=== PATIENT | male | born 1990 | race Caucasian/White ===

== ENCOUNTER 2017-03-13 15:41 | Inpatient (IN) | payer OTHER ==
[2017-03-13] MEDS ORDERED: CHARCOAL/SORBITOL SOLUTION 25 GM/120 ML TUBE PO ONE (16:13)
--- NOTE | 2017-03-13 16:23 | EDPHY ---
H & P Smoking Status: Never smoked Time Seen by Provider: 03/13/17 15:57 HPI/ROS: CHIEF COMPLAINT: Feeling suicidal, overdose HISTORY OF PRESENT ILLNESS: 26-year-old male presents to the emergency department feeling depressed and suicidal. The patient admits to taking 7 mg of Xanax and 4 5 shots of vodka in an attempt to kill himself approximately 1 hour prior to arrival. Patient denies any other substance abuse. He he denies taking any other pills. He currently has no complaints. He denies chest pain or difficulty breathing. Denies abdominal pain. Denies pain in the lower extremities or his left upper extremity. REVIEW OF SYSTEMS: Constitutional: No fever, no chills. Eyes: No double or blurry vision. ENT: No sore throat. Respiratory: No cough, no shortness of breath. Cardiac: No chest pain. Gastrointestinal: No abdominal pain, vomiting or diarrhea. Genitourinary: No dysuria. Musculoskeletal: No neck or back pain. Skin: No rashes. Neurological: No headache. (Melvi Cornejo) Past Medical/Surgical History: Borderline personality disorder, ADD and is prescribed Adderall, previous suicide attempt (Melvi Cornejo) Social History: Single (Melvi Cornejo) Physical Exam: General Appearance: Alert, no distress. Mentating normally and answering questions appropriately. Heart rate 104, blood pressure 123/83, friend at bedside. Eyes: Pupils equal and round. Extraocular motions are all intact. ENT: Mouth: Mucous membranes moist. Respiratory: No wheezing, rhonchi, or rales, lungs are clear to auscultation. Cardiovascular: Regular rate and rhythm. Tachycardic. Gastrointestinal: Abdomen is soft and nontender, no masses, no rebound or guarding, bowel sounds normal. Neurological: Alert and oriented x 3, cranial nerves II through XII grossly intact Skin: Warm and dry, no rashes. Musculoskeletal: Nontender to palpate along the cervical, thoracic or lumbar spine. Neck is supple. Extremities: Full range of motion and no peripheral edema. Psychiatric: Patient is oriented X 3, there is no agitation. (Melvi Cornejo) Constitutional: Initial Vital Signs Temperature (C) 36.8 C 03/13/17 15:43 Heart Rate 104 H 03/13/17 15:43 Respiratory Rate 18 03/13/17 15:43 Blood Pressure 123/83 H 03/13/17 15:43 O2 Sat (%) 96 03/13/17 15:43 O2 Delivery Mode Room Air Allergies/Adverse Reactions: No Known Allergies Allergy (Unverified 03/13/17 15:47) Home Medications: Medication Instructions Recorded ALPRAZolam [Xanax 1 MG (*)] 1 mg PO BID 03/13/17 Amphet Asp and D/Amphet [Adderall 10 mg PO 03/13/17 10 MG (*)] Medical Decision Making ED Course/Re-evaluation: 26-year-old male presents to the emergency department feeling depressed and suicidal. The patient was given activated charcoal with sorbitol since ingestion was apparently just under 1 hour ago. The patient was placed on a detainer by myself. ETOH breath was 0.39. The patient has been medically cleared and will be evaluated by mental health. (Melvi Cornejo) 6pm-this patient was seen and examined by me. He is alert and speech is normal. He is ready for mental health evaluation once his alcohol level is low enough. 2231: Patient has been evaluated by mental health and placed on M1 Hold. He will be transferred, most likely to . Care of this patient signed out to Dr. Aurelia Beltrán at shift change. (Cathy Hu) I assumed care of this patient from Dr. Hu at 11:00 p.m., shift change. At 20 minutes past midnight arrangements are made for him to be transferred to [address] [place] [address]. EMTALA signed. (Aurelia Beltrán) Differential Diagnosis: Depression including functional and major depression, situational depression, medication side effect, drugs and alcohol abuse. (Melvi Cornejo) Care Turn Over: Care will be turned over to Dr. Cathy Hu at 6:30 p.m. for disposition and plan. (Melvi Cornejo) - Data Points Laboratory Results: Laboratory Results 03/13/17 16:20 03/13/17 16:20 03/13/17 03/13/17 03/13/17 17:00 16:20 16:20 WBC 7.27 10^3/uL 10^3/uL (3.80-9.50) RBC 5.12 10^6/uL 10^6/uL (4.40-6.38) Hgb 16.2 g/dL g/dL (13.7-17.5) Hct 45.8 % % (40.0-51.0) MCV 89.5 fL fL (81.5-99.8) MCH 31.6 pg pg (27.9-34.1) MCHC 35.4 g/dL g/dL (32.4-36.7) RDW 12.2 % % (11.5-15.2) Plt Count 272 10^3/uL 10^3/uL (150-400) MPV 10.1 fL fL (8.7-11.7) Neut % (Auto) 54.4 % % (39.3-74.2) Lymph % (Auto) 33.7 % % (15.0-45.0) Catron % (Auto) 9.2 % % (4.5-13.0) Eos % (Auto) 1.7 % % (0.6-7.6) Baso % (Auto) 0.7 % % (0.3-1.7) Nucleat RBC Rel Count 0.0 % % (0.0-0.2) Absolute Neuts (auto) 3.96 10^3/uL 10^3/uL (1.70-6.50) Absolute Lymphs (auto) 2.45 10^3/uL 10^3/uL (1.00-3.00) Absolute Monos (auto) 0.67 10^3/uL 10^3/uL (0.30-0.80) Absolute Eos (auto) 0.12 10^3/uL 10^3/uL (0.03-0.40) Absolute Basos (auto) 0.05 10^3/uL 10^3/uL (0.02-0.10) Absolute Nucleated RBC 0.00 10^3/uL 10^3/uL (0-0.01) Immature Gran % 0.3 % % (0.0-1.1) Immature Gran # 0.02 10^3/uL 10^3/uL (0.00-0.10) Sodium 140 mEq/L mEq/L (134-144) Potassium 4.3 mEq/L mEq/L (3.5-5.2) Chloride 107 mEq/L mEq/L (97-110) Carbon Dioxide 21 mEq/l L mEq/l (22-31) Anion Gap 12 mEq/L mEq/L (8-16) BUN 10 mg/dL mg/dL (7-23) Creatinine 0.9 mg/dL mg/dL (0.7-1.3) Estimated GFR > 60 Glucose 99 mg/dL mg/dL (70-100) Calcium 9.7 mg/dL mg/dL (8.5-10.4) Total Bilirubin 0.7 mg/dL mg/dL (0.1-1.4) Conjugated Bilirubin 0.3 mg/dL mg/dL (0.0-0.5) Unconjugated Bilirubin 0.4 mg/dL mg/dL (0.0-1.1) AST 20 IU/L IU/L (17-59) ALT 31 IU/L IU/L (21-72) Alkaline Phosphatase 87 IU/L IU/L (38-126) Total Protein 7.1 g/dL g/dL (6.3-8.2) Albumin 4.2 g/dL g/dL (3.5-5.0) TSH 0.689 uIU/mL uIU/mL (0.465-4.680) Salicylates < 1.0 mg/dL L mg/dL (2.0-20.0) Urine Opiates Screen NEGATIVE (NEGATIVE) Acetaminophen < 10 mcg/mL L mcg/mL (10.0-30.0) Urine Barbiturates NEGATIVE (NEGATIVE) Ur Phencyclidine Scrn NEGATIVE (NEGATIVE) Ur Amphetamine Screen NON-NEGATIVE H (NEGATIVE) U Benzodiazepines Scrn NON-NEGATIVE H (NEGATIVE) Urine Cocaine Screen NEGATIVE (NEGATIVE) U Marijuana (THC) Screen NEGATIVE (NEGATIVE) Ethyl Alcohol 58 mg/dL H mg/dL (0-10) Medications Given: Discontinued Medications Charcoal/Sorbitol (Actidose) 25 gm PO EDNOW ONE Stop: 03/13/17 16:14 Last Admin: 03/13/17 16:15 Dose: 25 gm Departure - Departure Clinical Impression: Suicidal ideation Depression Qualifiers: Depression Type: unspecified Qualified Code(s): F32.9 - Major depressive disorder, single episode, unspecified Referrals: DR JB [Other] - As per Instructions
[2017-03-13 16:28] LABS: % IMMATURE GRANULYOCYTES 0.3 % (0.0-1.1); ABSOLUTE IMMATURE GRANULOCYTES 0.02 10^3/uL (0.00-0.10); ADD DIFF? NO; ADD MORPH? NO; ADD SCAN? NO; ATYPICAL LYMPHOCYTE FLAG 10 (0-99); FRAGMENT RBC FLAG 0 (0-99); HEMATOCRIT 45.8 % (40.0-51.0); HEMOGLOBIN 16.2 g/dL (13.7-17.5); LEFT SHIFT FLG 0 (0-99); LIPEMIA HEMOLYSIS FLAG 90 (0-99); MEAN CELL HEMOGLOBIN 31.6 pg (27.9-34.1); MEAN CELL HEMOGLOBIN CONCENTR. 35.4 g/dL (32.4-36.7); MEAN CELL VOLUME 89.5 fL (81.5-99.8); MEAN PLATELET VOLUME 10.1 fL (8.7-11.7); PLATELET CLUMPS FLAG 0 (0-99); PLATELET COUNT 272 10^3/uL (150-400); RED BLOOD CELL COUNT 5.12 10^6/uL (4.40-6.38); RED CELL DISTRIBUTION WIDTH 12.2 % (11.5-15.2)
[2017-03-13 17:02] LABS: ALANINE AMINOTRANSFERASE 31 IU/L (21-72); ALBUMIN 4.2 g/dL (3.5-5.0); ALKALINE PHOSPHATASE 87 IU/L (38-126); ANION GAP 12 mEq/L (8-16); ASPARTATE AMINOTRANSFERASE 20 IU/L (17-59); BILIRUBIN,TOTAL 0.7 mg/dL (0.1-1.4); BILIRUBIN-CONJUGATED 0.3 mg/dL (0.0-0.5); BILIRUBIN-UNCONJUGATED 0.4 mg/dL (0.0-1.1); CALCIUM 9.7 mg/dL (8.5-10.4); CARBON DIOXIDE 21 mEq/l (22-31); CHLORIDE 107 mEq/L (97-110); CREATININE 0.9 mg/dL (0.7-1.3); ETHANOL SERUM 58 mg/dL (0-10); GLOMERULAR FILTRATION RATE > 60; GLUCOSE 99 mg/dL (70-100); POTASSIUM 4.3 mEq/L (3.5-5.2); SALICYLATE < 1.0 mg/dL (2.0-20.0); SODIUM 140 mEq/L (134-144); TOTAL PROTEIN 7.1 g/dL (6.3-8.2)
--- NOTE | 2017-03-13 17:46 | CPEKG ---
Heart Rate: 103 RR Interval: 583 P-R Interval: 156 QRSD Interval: 90 QT Interval: 344 QTC Interval: 451 P Beatty: 66 QRS Beatty: 81 T Wave Beatty: 58 EKG Severity - OTHERWISE NORMAL ECG - EKG Impression: SINUS TACHYCARDIA Electronically Signed By: Cathy Hu 13-Mar-2017 22:27:47
[2017-03-14] MEDS ORDERED: NICOTINE POLACRILEX 2 MG GUM B PRN (01:28)
[2017-03-14] MEDS ORDERED: MAG HYDROX/AL HYDROX/SIMETH 30 ML UDCUP PO PRN (01:28)
[2017-03-14] MEDS ORDERED: MAGNESIUM HYDROXIDE 30 ML UDCUP PO PRN (01:28)
[2017-03-14] MEDS ORDERED: ACETAMINOPHEN 325 MG TAB PO PRN (01:28)
--- NOTE | 2017-03-14 09:20 | GCON ---
[f rep st] CONSULTATION DATE OF CONSULTATION: 03/14/2017 HISTORY OF PRESENT ILLNESS: Patient is a 26-year-old male with history of personality disorder, who presented to the emergency room, feeling depressed and attempted suicide. He took 7 mg of Xanax and 4-5 shots of vodka 1 hour prior to arrival. He thought he would try and see if it would kill him. He reports having increased stress due to a new job, delivering pizza at [employer]. He often has thoughts of hurting himself, but never a plan. He thinks at this time he executed it just with the stress. He denies any other ingestions. He denies chest pain, shortness of breath, nausea, vomiting. No fevers, chills,or sweats. Also, increased stressor is that he has dropped out of [employer] in [place]. This morning, he says he does not want to harm himself. REVIEW OF SYSTEMS: I completed a 10-point review of systems and negative, except as noted in HPI. PAST MEDICAL HISTORY: Borderline personality disorder, ADD. PSH: none SOCIAL HISTORY: Lives in [place]. Was going to [employer] there, but recently dropped out because could not handle it. Social alcohol. No tobacco or illicits. MEDICATIONS: 1. Adderall. 2. Xanax. ALLERGIES: No known drug allergies. FAMILY HISTORY: Father with heart surgery. PHYSICAL EXAM: VITAL SIGNS: Temperature 36.4, blood pressure 106/65, heart rate 90s, respirations 12, and 96% on room air. GENERAL: Patient is sitting on bed, in no acute distress, smiling. HEENT: PERRLA. EOMI. Oropharynx clear. CV: Regular rate and rhythm. No murmurs, gallops, or rubs. LUNGS: Clear to auscultation. No crackles or wheezing. GI: Soft, nontender, nondistended. : No suprapubic tenderness. MUSCULOSKELETAL: 5/5 upper and lower extremity strength. NEURO: 2 through 12 intact. PSYCH: Alert and oriented x3. Pleasant. LABORATORY DATA: WBC 7, hemoglobin 16, hematocrit 45, platelets 272. Sodium 140, potassium 4.3, chloride 107, carbon dioxide 21, creatinine 0.9. LFTs within normal. TSH 0.6. Negative salicylate and Tylenol. BAL was 58. Urine tox positive for amphetamine and benzodiazepines. EKG is personally reviewed by me. Sinus tachycardia. No ST elevation or depression. ASSESSMENT/PLAN: 1. Suicide attempt with overdose: admitted to taking Xanax and etoh to kill himself. Labs normal and hemodynamically stable. This morning, he states that he does not want to harm himself. Treatment per behavioral health team. 2. Personality disorder: per behavioral health team. 3. Benzodiazepine abuse: monitor for withdrawal symptoms including tachycardia , fevers, agitation that can be treated with PRN BZs DIET: Regular. DVT PROPHYLAXIS: Ambulatory. DISPOSITION: Thank you for this consultation. Please call if questions. /[id number]/MODL MTDD
[2017-03-14] MEDS ORDERED: ADDERALL 20 MG TAB PO SCH (13:30)
[2017-03-14] MEDS: ADDERALL 20 MG TAB PO SCH (13:45)
[2017-03-14] MEDS: ADDERALL 10 MG TAB PO SCH (15:24)
[2017-03-14] MEDS: LORazepam 0.5 MG TAB PO PRN ×2 (16:39→20:21)
[2017-03-15] MEDS: LORazepam 0.5 MG TAB PO PRN ×3 (06:43→20:27)
--- NOTE | 2017-03-15 08:02 | BAPA ---
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 HISTORY OF PRESENT ILLNESS: The patient presents with a chronic history beginning in his teenage years for recurrent depressive episodes associated with depressed mood, anhedonia, diminished psychomotor energy, social withdrawal. Emerging approximately 2 years ago were brief episodes on a weekly basis, in which patient would experience increased psychomotor energy, 24-48 hours without sleep. He states his mood would "improve" over these brief episodes and he would be organized and functional. The patient also states he has experienced generalized anxiety for an extended period. He did seek out an outpatient psychiatric consult for his depressive symptoms at age 21 and was treated for a time limited period with medications including bupropion and Lexapro, which he describes were of little help. He again engaged in outpatient psychiatric services beginning 18 months ago and has continued meeting on a regular basis with a psychiatrist in [place]; psychiatrist Dr. Loredo. Patient states she had diagnosed him with Attention Deficit Disorder and Borderline Personality Disorder. He has been placed on medication including Adderall XR 30 mg daily and Xanax 1 mg at h.s. He states he has not described the cycles of sleeplessness and changed affective state, as well as he is not focused in on his depressive symptoms with this psychiatrist. He states he understands he has been diagnosed with BPD by Dr. Loredo as his emotional control is chronically dysregulated, he over-attaches in dependent relationships and has trouble sustaining relationships. More acutely, he was attending community college, and despite doing relatively well with his studies, he recently had problems with keeping up with the work and was convinced, " I was going to fail courses." He somewhat impulsively dropped out of school, depressive symptoms intensified which included suicidal ideation. On the day of admission, the patient decided to "maybe take my life" and overdosed on 7 mg of Xanax and 5 shots of vodka. He disclosed this to a friend who brought the patient to the [facility] emergency room for evaluation. Medical assessment included an unremarkable physical exam which evidenced no focal or systemic acuity other than an elevated pulse of 104. Patient was not intoxicated. Lab screens included a blood alcohol of 58, toxic screen positive for benzodiazepines and amphetamines. CBC, BMP, and TSH were unremarkable. The patient was seen in psychiatric consultation by [facility]. He presented as dysphoric, labile, nonpsychotic. He stated he had planned to kill himself for a period of several days prior to the overdose. He appeared to be pharmacologically naive and not understanding what he overdosed with was remarkably incapable of killing him. He presented as very motivated for help, as well as feeling unsafe if he returned to the community. He was deemed to be at high risk of inability to manage him safely in the community and sent on for admission to [address] [place] [address] on an M1 hold. PSYCHIATRIC HISTORY: See as referenced above in the Present Illness narrative. The patient states that he had 1 other suicide attempt by overdose. He is vague about the date, but thinks it was shortly after moving to [place] 5 years ago. He stated he "lied in the emergency room" when he was assessed for the overdose in representing it as accidental and there was no treatment followup at that time. As referenced above, the patient did have a time limited course of outpatient treatment at age 21, again shortly after the move to [place] from his home state. Patient suggests a trigger for his initial onset of depression was associated with his parent's divorce. Patient was not treated again until he engaged his current psychiatrist approximately 8 months ago and was diagnosed with ADD and Cluster B pathology. It is odd that the patient reports he and his psychiatrist have not focused on his history of affective instability with a preponderance of depression throughout the 18 months of treatment. He states he had several sessions with a psychotherapist "doing DBT treatment" while living in [place]. This treatment stopped with his move to the [place] area some 6 months ago. MEDICAL HISTORY: Patient essentially has a noncontributory medical history; he has generally been well with no previously diagnosed medical conditions. ALLERGIES: Patient has no known medication, food, or environmental allergies. MEDICAL REVIEW OF SYSTEMS: Negative. SUBSTANCE ABUSE HISTORY: Patient denies present or history of alcohol or drug abuse. He does state he drinks approximately once a month and does drink to mild intoxication. He denies current or previous use of substances. LEGAL HISTORY: Patient denies current or past legal issues. FAMILY HISTORY/PERSONAL HISTORY: As stated, patient's parents are . Patient states his father has been an active alcoholic over the years and this was a factor in parents . He states his mother is depressive prone. Father allegedly stabilized and returned home and raised pt in an effective parental manner for a number of years. Father has remarried and lives with second in [place]; pt has not seen him for several years. The patient has 2 siblings, a sister and a brother. He states he remains relatively close to both siblings and actually lives with his brother and his brother's girlfriend in the [facility]. He states his sister has been diagnosed as Bpolar, as well as "borderline personality"; patient's sister is in engaged in psychiatric treatment. The patient also describes himself as bisexual, but sexually inactive. He admits to extremely limited sexual experiences and is not in a romantic relationship currently. The patient is a high school graduate and attended a community college, from which he recently dropped out. He is working full-time as a [employer] man. Patient states he enlisted in the [employer], but was administratively discharged secondary to an inability to pass certain certification exams. He thinks that his untreated ADD was a major factor in his failure to complete testing. The patient states he has a "borderline personality" disorder as diagnosed by a psychiatrist secondary to a chronic history of over-attachment to others, over-reaction emotionally, impulsive behaviors, and a general inability to regulate his emotions. ADMISSION MENTAL STATUS EXAM: The patient presents as a young-appearing young adult male, who is kempt, evidences normal gait and station, is cooperative with the admission engagement. He makes good eye contact and is verbally disclosing throughout the session. Patient's mood state is mildly dysphoric. He evidences mild affective lability, no overt psychosis, denies current suicidality. When exploring his suicidal ideation and attempt, patient expresses relief he was not successful and clear ambivalence in initiating the overdose. He states he was relieved when his friend heard what had happened and brought him to the emergency room, as "I really wanted to get help." Patient's thought process is linear, logical, and goal directed. He is alert and oriented x4, evidences full memory function across all domains. His intelligence is average referencing his vocabulary, language syntax, and fund of information. He appears to have poor insight, fair judgment, and active impulse control. ADL functions appear appropriate for his age. As stated, patient appears invested in his inpatient intervention in order to complete a diagnostic workup and formulate a more focused community treatment. He also is invested in re-stabilizing his mental status with improved functional and affective capability prior to discharge. Session focuses on staging his mental status, obtaining a syndromal and treatment history, and an overview of patient' s lifeline history. FORMULATION: The patient presents as a 26-year-old single white male with a chronic history of affective instability, sorting out as a preponderance of depressive episodes extending back 5+ years. Within the past 2-3 years, he has established cycles of increased energy, 48 hours of sleeplessness-consistent with hypomanic states. He has been in treatment for 18 months with a community psychiatrist with whom he has been diagnosed with Attention Deficit Disorder and Borderline Personality Disorder. For reasons that are unclear, his chronic and current vulnerability to depression, as well as brief hypomanic states on a weekly basis have not been addressed. TREATMENT FOCUS: Will expedite completing psychiatric workup, conferring with patient's community psychiatrist to establish effective pharmacologic regimen and followup treatment plan. Patient has given us permission to call his sister who has been allegedly diagnosed and treated for Bipolar Disorder. INITIAL TREATMENT PLAN: 1. Nursing: Complete admission assessment; monitor patient for safety and suicidality; encourage compliance with cares and medications; orient to unit, milieu and group program and encourage participation. 2. Psychiatry: Complete admission assessment; provide daily E/M contacts with focus on diagnostic workup, assess and manage medication needs, provide reintegrated psychotherapeutic contacts, and ally patient with definitive discharge plan linked at discharge. 3. Clinical coordinator: Daily contacts to expand the database including contact with relevant collaterals; identify discharge resources which prepare to link patient post discharge. 4. Medical consultation: Pending. 5. Medications: Will resume patient's Adderall 30 mg XR, provide p.r.n. Ativan , formulate definitive medications in parallel with consulting with patient's community psychiatrist. 6. Prioritized inpatient goals: Stabilize mental status sufficient for discharge; complete diagnostic formulation to inform discharge plan; ally patient with discharge resources with links in place at discharge. /[id number]/MODL MTDD
[2017-03-15] MEDS: ADDERALL 20 MG TAB PO SCH (08:50)
[2017-03-15] MEDS ORDERED: ADDERALL 10 MG TAB PO SCH (09:00)
[2017-03-15] MEDS: ADDERALL 10 MG TAB PO SCH (12:04)
[2017-03-15] MEDS ORDERED: LITHIUM CARBONATE ER 450 MG TAB PO SCH (14:00)
[2017-03-15] MEDS: ARIPiprazole 2 MG TAB PO SCH ×2 (14:23→20:28)
[2017-03-15] MEDS: LITHIUM CARBONATE ER 450 MG TAB PO SCH ×2 (14:24→20:27)
--- NOTE | 2017-03-15 16:11 | SOAPPROG ---
SOARIK Progress Note Assessment/Plan: Assessment: Plan: 03/15/17 16:03 DAY 2 35' UPDATE/EXAM: Nursing report pt's affective state improving in clearing syndromal depression; pt c/w care/meds, selectively socializing and attending selective groups/ on direct exam is calm and conversant; review sx history again carefully gather further life-line history; meds discussed and pt accepting of [place] and Abilify trial. Case Reviewed in detail telephonically with community psychiatrist Dr. Loredo who agrees with dx impression of Bipolar 2 Disorder with rapid cycling feature as supported by hx and with meds suggestions ASSESSMENT/PLAN: improving affectively/ begin [place] ER trial @ 450 mg bid and Abilify 2 mg bid; DC planning initiated and will recommend individual psychotherapy and group DBT referral Objective: Vital Signs Temp Pulse Resp BP Pulse Ox 36.4 C 90 15 101/61 95 03/15/17 06:00 03/15/17 06:00 03/15/17 06:00 03/15/17 06:00 03/15/17 06:00 ICD10 Worksheet Patient Problems: Problems Problem Status Onset Depression Acute Suicidal ideation Acute
[2017-03-15] MEDS ORDERED: ARIPiprazole 2 MG TAB PO SCH (21:00)
--- NOTE | 2017-03-16 06:39 | SOAPPROG ---
YARIEL Progress Note Assessment/Plan: Assessment: Plan: 03/15/17 16:03 DAY 2 35' UPDATE/EXAM: Nursing report pt's affective state improving in clearing syndromal depression; pt c/w care/meds, selectively socializing and attending selective groups/ on direct exam is calm and conversant; review sx history again carefully gather further life-line history; meds discussed and pt accepting of [place] and Abilify trial. Case Reviewed in detail telephonically with community psychiatrist Dr. Loredo who agrees with dx impression of Bipolar 2 Disorder with rapid cycling feature as supported by hx and with meds suggestions ASSESSMENT/PLAN: improving affectively/ begin [place] ER trial @ 450 mg bid and Abilify 2 mg bid; DC planning initiated and will recommend individual psychotherapy and group DBT referral 03/16/17 DAY ' UPDATE/EXAM: Objective: Vital Signs Temp Pulse Resp BP Pulse Ox 36.7 C 90 12 107/63 96 03/16/17 06:00 03/16/17 06:00 03/16/17 06:00 03/16/17 06:00 03/16/17 06:00 ICD10 Worksheet Patient Problems: Problems Problem Status Onset Depression Acute Suicidal ideation Acute
[2017-03-16] MEDS: LORazepam 0.5 MG TAB PO PRN ×3 (07:45→22:22)
[2017-03-16] MEDS: ADDERALL 20 MG TAB PO SCH (07:55)
[2017-03-16] MEDS: LITHIUM CARBONATE ER 450 MG TAB PO SCH ×2 (07:55→18:03)
[2017-03-16] MEDS: ARIPiprazole 2 MG TAB PO SCH ×2 (07:55→20:32)
[2017-03-16] MEDS: ADDERALL 10 MG TAB PO SCH (11:10)
--- NOTE | 2017-03-16 14:45 | SOAPPROG ---
SOARIK Progress Note Assessment/Plan: Assessment: Plan: 03/15/17 16:03 DAY 2 35' UPDATE/EXAM: Nursing report pt's affective state improving in clearing syndromal depression; pt c/w care/meds, selectively socializing and attending selective groups/ on direct exam is calm and conversant; review sx history again carefully gather further life-line history; meds discussed and pt accepting of [place] and Abilify trial. Case Reviewed in detail telephonically with community psychiatrist Dr. Loredo who agrees with dx impression of Bipolar 2 Disorder with rapid cycling feature as supported by hx and with meds suggestions ASSESSMENT/PLAN: improving affectively/ begin [place] ER trial @ 450 mg bid and Abilify 2 mg bid; DC planning initiated and will recommend individual psychotherapy and group DBT referral 03/16/17 1`4:39 DAY ' UPDATE/EXAM: Nursing reports past 24 hours pt making more gains on affective stabilization; pt did have breakthru panic when 2 friends weren't able to visit - flooded with thought they"d ended the relationships altho he checked himself and understood that was totally unrealistic with calming and reflective though/ presents today as calm, conversant,mildly anxious but with neutral mood; discussed anti-impulse strategies and safty plan in detail, meds reviewed, DC timetable ASSESSMENT/PLAN: continues affective stabilization/ will check [place] level in AM, reassess meds in AM, continue current management plan, anticipate DC 03/18 Objective: Vital Signs Temp Pulse Resp BP Pulse Ox 36.7 C 90 12 107/63 96 03/16/17 06:00 03/16/17 06:00 03/16/17 06:00 03/16/17 06:00 03/16/17 06:00 ICD10 Worksheet Patient Problems: Problems Problem Status Onset Depression Acute Suicidal ideation Acute
[2017-03-17 06:26] VITALS: RESP 16
[2017-03-17 08:04] LABS: LITHIUM 0.6 mEq/L (0.6-1.2)
--- NOTE | 2017-03-17 08:09 | SOAPPROG ---
SOAP Progress Note Assessment/Plan: Assessment: Plan: 03/15/17 16:03 DAY 2 35' UPDATE/EXAM: Nursing report pt's affective state improving in clearing syndromal depression; pt c/w care/meds, selectively socializing and attending selective groups/ on direct exam is calm and conversant; review sx history again carefully gather further life-line history; meds discussed and pt accepting of [place] and Abilify trial. Case Reviewed in detail telephonically with community psychiatrist Dr. Loredo who agrees with dx impression of Bipolar 2 Disorder with rapid cycling feature as supported by hx and with meds suggestions ASSESSMENT/PLAN: improving affectively/ begin [place] ER trial @ 450 mg bid and Abilify 2 mg bid; DC planning initiated and will recommend individual psychotherapy and group DBT referral 03/16/17 1`4:39 DAY UPDATE/EXAM: Nursing reports past 24 hours pt making more gains on affective stabilization; pt did have breakthru panic when 2 friends weren't able to visit - flooded with thought they"d ended the relationships altho he checked himself and understood that was totally unrealistic with calming and reflective though/ presents today as calm, conversant,mildly anxious but with neutral mood; discussed anti-impulse strategies and safty plan in detail, meds reviewed, DC timetable ASSESSMENT/PLAN: continues affective stabilization/ will check [place] level in AM, reassess meds in AM, continue current management plan, anticipate DC 03/1803/17/17 DAY UPDATE/EXAM: Objective: Vital Signs Temp Pulse Resp BP Pulse Ox 36.4 C 103 H 16 92/54 L 96 03/17/17 06:00 03/17/17 06:00 03/17/17 06:00 03/17/17 06:00 03/17/17 06:00 ICD10 Worksheet Patient Problems: Problems Problem Status Onset Depression Acute Suicidal ideation Acute
[2017-03-17] MEDS: ADDERALL 20 MG TAB PO SCH (08:38)
[2017-03-17] MEDS: LITHIUM CARBONATE ER 450 MG TAB PO SCH ×2 (08:39→20:24)
[2017-03-17] MEDS: ARIPiprazole 2 MG TAB PO SCH ×2 (08:39→20:24)
[2017-03-17] MEDS: LORazepam 0.5 MG TAB PO PRN ×3 (08:59→22:18)
[2017-03-17] MEDS: ADDERALL 10 MG TAB PO SCH (11:48)
--- NOTE | 2017-03-17 14:40 | SOAPPROG ---
SOAP Progress Note Assessment/Plan: Assessment: Plan: 03/15/17 16:03 DAY 2 35' UPDATE/EXAM: Nursing report pt's affective state improving in clearing syndromal depression; pt c/w care/meds, selectively socializing and attending selective groups/ on direct exam is calm and conversant; review sx history again carefully gather further life-line history; meds discussed and pt accepting of [place] and Abilify trial. Case Reviewed in detail telephonically with community psychiatrist Dr. Loredo who agrees with dx impression of Bipolar 2 Disorder with rapid cycling feature as supported by hx and with meds suggestions ASSESSMENT/PLAN: improving affectively/ begin [place] ER trial @ 450 mg bid and Abilify 2 mg bid; DC planning initiated and will recommend individual psychotherapy and group DBT referral 03/16/17 1`4:39 DAY UPDATE/EXAM: Nursing reports past 24 hours pt making more gains on affective stabilization; pt did have breakthru panic when 2 friends weren't able to visit - flooded with thought they"d ended the relationships altho he checked himself and understood that was totally unrealistic with calming and reflective though/ presents today as calm, conversant,mildly anxious but with neutral mood; discussed anti-impulse strategies and safty plan in detail, meds reviewed, DC timetable ASSESSMENT/PLAN: continues affective stabilization/ will check [place] level in AM, reassess meds in AM, continue current management plan, anticipate DC 03/1803/17/17 13:45 DAY UPDATE/EXAM: nursing reports pt sustaining affective stabilization and compliant with cares/meds and engaging his Care Plan/ on direct exam pt presents as calm cooperative, and conversant; meds reviewed and pt asks for anxiolytic post DC; he is concerned about his vulnerability to social anxiety and risk of catastrophic thinking which preadmission triggered his SI and SA; further discussion of safety plan and medications ensued. ASSESSMENT/PLAN: stabilizing affectively/ active DC preparation; Objective: Vital Signs Temp Pulse Resp BP Pulse Ox 36.4 C 103 H 16 92/54 L 96 03/17/17 06:00 03/17/17 06:00 03/17/17 06:00 03/17/17 06:00 03/17/17 06:00 ICD10 Worksheet Patient Problems: Problems Problem Status Onset Depression Acute Suicidal ideation Acute
--- NOTE | 2017-03-17 14:43 | SOAPPROG ---
SOAP Progress Note Assessment/Plan: Assessment: Plan: 03/15/17 16:03 DAY 2 35' UPDATE/EXAM: Nursing report pt's affective state improving in clearing syndromal depression; pt c/w care/meds, selectively socializing and attending selective groups/ on direct exam is calm and conversant; review sx history again carefully gather further life-line history; meds discussed and pt accepting of [place] and Abilify trial. Case Reviewed in detail telephonically with community psychiatrist Dr. Loredo who agrees with dx impression of Bipolar 2 Disorder with rapid cycling feature as supported by hx and with meds suggestions ASSESSMENT/PLAN: improving affectively/ begin [place] ER trial @ 450 mg bid and Abilify 2 mg bid; DC planning initiated and will recommend individual psychotherapy and group DBT referral 03/16/17 1`4:39 DAY UPDATE/EXAM: Nursing reports past 24 hours pt making more gains on affective stabilization; pt did have breakthru panic when 2 friends weren't able to visit - flooded with thought they"d ended the relationships altho he checked himself and understood that was totally unrealistic with calming and reflective though/ presents today as calm, conversant,mildly anxious but with neutral mood; discussed anti-impulse strategies and safty plan in detail, meds reviewed, DC timetable ASSESSMENT/PLAN: continues affective stabilization/ will check [place] level in AM, reassess meds in AM, continue current management plan, anticipate DC 03/1803/17/17 13:45 DAY UPDATE/EXAM: nursing reports pt sustaining affective stabilization and compliant with cares/meds and engaging his Care Plan/ on direct exam pt presents as calm cooperative, and conversant; meds reviewed and pt asks for anxiolytic post DC; he is concerned about his vulnerability to social anxiety and risk of catastrophic thinking which preadmission triggered his SI and SA; further discussion of safety plan and medications ensued. ASSESSMENT/PLAN: stabilizing affectively/ active DC preparation; [place] 0.6 - will reasess meds; no change in manangement plan; DC scheduled for tomorro Objective: Vital Signs Temp Pulse Resp BP Pulse Ox 36.4 C 103 H 16 92/54 L 96 03/17/17 06:00 03/17/17 06:00 03/17/17 06:00 03/17/17 06:00 03/17/17 06:00 ICD10 Worksheet Patient Problems: Problems Problem Status Onset Depression Acute Suicidal ideation Acute
[2017-03-18 06:23] VITALS: BP 105/61; PULSE 104; TEMP 97.5; O2SAT 97
--- NOTE | 2017-03-18 06:32 | SOAPPROG ---
SOAP Progress Note Assessment/Plan: Assessment: Plan: 03/15/17 16:03 DAY 2 35' UPDATE/EXAM: Nursing report pt's affective state improving in clearing syndromal depression; pt c/w care/meds, selectively socializing and attending selective groups/ on direct exam is calm and conversant; review sx history again carefully gather further life-line history; meds discussed and pt accepting of [place] and Abilify trial. Case Reviewed in detail telephonically with community psychiatrist Dr. Loredo who agrees with dx impression of Bipolar 2 Disorder with rapid cycling feature as supported by hx and with meds suggestions ASSESSMENT/PLAN: improving affectively/ begin [place] ER trial @ 450 mg bid and Abilify 2 mg bid; DC planning initiated and will recommend individual psychotherapy and group DBT referral 03/16/17 1`4:39 DAY UPDATE/EXAM: Nursing reports past 24 hours pt making more gains on affective stabilization; pt did have breakthru panic when 2 friends weren't able to visit - flooded with thought they"d ended the relationships altho he checked himself and understood that was totally unrealistic with calming and reflective though/ presents today as calm, conversant,mildly anxious but with neutral mood; discussed anti-impulse strategies and safty plan in detail, meds reviewed, DC timetable ASSESSMENT/PLAN: continues affective stabilization/ will check [place] level in AM, reassess meds in AM, continue current management plan, anticipate DC 03/1803/17/17 13:45 DAY ' UPDATE/EXAM: nursing reports pt sustaining affective stabilization and compliant with cares/meds and engaging his Care Plan/ on direct exam pt presents as calm cooperative, and conversant; meds reviewed and pt asks for anxiolytic post DC; he is concerned about his vulnerability to social anxiety and risk of catastrophic thinking which preadmission triggered his SI and SA; further discussion of safety plan and medications ensued. ASSESSMENT/PLAN: stabilizing affectively/ active DC preparation; [place] 0.6 - will reassess meds; no change in manangement plan; DC scheduled for tomorrow 03/18/17 DAY " UPDATE: Objective: Vital Signs Temp Pulse Resp BP Pulse Ox 36.4 C 104 H 16 105/61 97 03/18/17 06:00 03/18/17 06:00 03/18/17 06:00 03/18/17 06:00 03/18/17 06:00 ICD10 Worksheet Patient Problems: Problems Problem Status Onset Depression Acute Suicidal ideation Acute
[2017-03-18] MEDS ORDERED: ALPRAZolam 1 MG TAB PO PRN (06:33)
[2017-03-18] MEDS: LITHIUM CARBONATE ER 450 MG TAB PO SCH (07:40)
[2017-03-18] MEDS: ARIPiprazole 2 MG TAB PO SCH (07:40)
[2017-03-18] MEDS: ADDERALL 20 MG TAB PO SCH (07:40)
--- NOTE | 2017-03-18 10:56 | SOAPPROG ---
SOAP Progress Note Assessment/Plan: Assessment: Plan: 03/15/17 16:03 DAY 2 35' UPDATE/EXAM: Nursing report pt's affective state improving in clearing syndromal depression; pt c/w care/meds, selectively socializing and attending selective groups/ on direct exam is calm and conversant; review sx history again carefully gather further life-line history; meds discussed and pt accepting of [place] and Abilify trial. Case Reviewed in detail telephonically with community psychiatrist Dr. Loredo who agrees with dx impression of Bipolar 2 Disorder with rapid cycling feature as supported by hx and with meds suggestions ASSESSMENT/PLAN: improving affectively/ begin [place] ER trial @ 450 mg bid and Abilify 2 mg bid; DC planning initiated and will recommend individual psychotherapy and group DBT referral 03/16/17 1`4:39 DAY ' UPDATE/EXAM: Nursing reports past 24 hours pt making more gains on affective stabilization; pt did have breakthru panic when 2 friends weren't able to visit - flooded with thought they"d ended the relationships altho he checked himself and understood that was totally unrealistic with calming and reflective though/ presents today as calm, conversant,mildly anxious but with neutral mood; discussed anti-impulse strategies and safty plan in detail, meds reviewed, DC timetable ASSESSMENT/PLAN: continues affective stabilization/ will check [place] level in AM, reassess meds in AM, continue current management plan, anticipate DC 03/1803/17/17 13:45 DAY ' UPDATE/EXAM: nursing reports pt sustaining affective stabilization and compliant with cares/meds and engaging his Care Plan/ on direct exam pt presents as calm cooperative, and conversant; meds reviewed and pt asks for anxiolytic post DC; he is concerned about his vulnerability to social anxiety and risk of catastrophic thinking which preadmission triggered his SI and SA; further discussion of safety plan and medications ensued. ASSESSMENT/PLAN: stabilizing affectively/ active DC preparation; [place] 0.6 - will reassess meds; no change in management plan; DC scheduled for tomorrow 03/18/17 10:45 DAY " UPDATE: Nursing reports pt is evidencing stable mental status, slept well, continued to comply with rx plan and prepara for DC today ON EXAM: pt presents as calm, cooperative, conversant; affectively stable with appropriate speech parameters; thought process concrete, linear, and goal- focussed; reviewed course progress about strategies to control emotions, manage any recurrence of SI; meds reviewed, use of f/u treatment plan including psychotherapy and group therapies; pt sufficiently stable for DC; displays first order insight. ASSESSMENT/PLAN: stable for DC today DC to reutrn home and out f/u - scheduled with community psychiatrist 03/29; referral 03/25 for triage linking pt to psychotherapist and ? CBT group meds as / day scripts provided at DC See DC Summary Objective: Vital Signs Temp Pulse Resp BP Pulse Ox 36.4 C 104 H 16 105/61 97 03/18/17 06:00 03/18/17 06:00 03/18/17 06:00 03/18/17 06:00 03/18/17 06:00 ICD10 Worksheet Patient Problems: Problems Problem Status Onset Depression Acute Suicidal ideation Acute
--- NOTE | 2017-03-18 11:02 | SOAPPROG ---
SOAP Progress Note Assessment/Plan: Assessment: Plan: 03/15/17 16:03 DAY 2 35' UPDATE/EXAM: Nursing report pt's affective state improving in clearing syndromal depression; pt c/w care/meds, selectively socializing and attending selective groups/ on direct exam is calm and conversant; review sx history again carefully gather further life-line history; meds discussed and pt accepting of [place] and Abilify trial. Case Reviewed in detail telephonically with community psychiatrist Dr. Loerdo who agrees with dx impression of Bipolar 2 Disorder with rapid cycling feature as supported by hx and with meds suggestions ASSESSMENT/PLAN: improving affectively/ begin [place] ER trial @ 450 mg bid and Abilify 2 mg bid; DC planning initiated and will recommend individual psychotherapy and group DBT referral 03/16/17 1`4:39 DAY ' UPDATE/EXAM: Nursing reports past 24 hours pt making more gains on affective stabilization; pt did have breakthru panic when 2 friends weren't able to visit - flooded with thought they"d ended the relationships altho he checked himself and understood that was totally unrealistic with calming and reflective though/ presents today as calm, conversant,mildly anxious but with neutral mood; discussed anti-impulse strategies and safty plan in detail, meds reviewed, DC timetable ASSESSMENT/PLAN: continues affective stabilization/ will check [place] level in AM, reassess meds in AM, continue current management plan, anticipate DC 03/1803/17/17 13:45 DAY ' UPDATE/EXAM: nursing reports pt sustaining affective stabilization and compliant with cares/meds and engaging his Care Plan/ on direct exam pt presents as calm cooperative, and conversant; meds reviewed and pt asks for anxiolytic post DC; he is concerned about his vulnerability to social anxiety and risk of catastrophic thinking which preadmission triggered his SI and SA; further discussion of safety plan and medications ensued. ASSESSMENT/PLAN: stabilizing affectively/ active DC preparation; [place] 0.6 - will reassess meds; no change in management plan; DC scheduled for tomorrow 03/18/17 10:45 DAY " UPDATE: Nursing reports pt is evidencing stable mental status, slept well, continued to comply with rx plan and prepara for DC today ON EXAM: pt presents as calm, cooperative, conversant; affectively stable with appropriate speech parameters; thought process concrete, linear, and goal- focussed; reviewed course progress about strategies to control emotions, manage any recurrence of SI; meds reviewed, use of f/u treatment plan including psychotherapy and group therapies; pt sufficiently stable for DC; displays first order insight. ASSESSMENT/PLAN: stable for DC today DC to return home and out f/u - scheduled with community psychiatrist 03/29; referral 03/25 for triage linking pt to psychotherapist and ? CBT group meds as / day scripts provided at DC See DC Summary 03/18/17 10:59 Xanax 1mg hs prn/Adderall XR 30 mg qam/ Abilify 2 mg bid / [place] ER 450 mg bid 03/18/17 11:01 Objective: Vital Signs Temp Pulse Resp BP Pulse Ox 36.4 C 104 H 16 105/61 97 03/18/17 06:00 03/18/17 06:00 03/18/17 06:00 03/18/17 06:00 03/18/17 06:00 ICD10 Worksheet Patient Problems: Problems Problem Status Onset Depression Acute Suicidal ideation Acute
== END 2017-03-18 11:28 | disposition home or self-care (01) | DRG 883 ==
LOC: BBEH 03-14 01:10
PROVIDERS: ADMIT Psychiatry & Neurology Psychiatry; ATTEND Psychiatry & Neurology Psychiatry
DX: F60.3 Borderline personality disorder (principal); F19.10 Other psychoactive substance abuse, uncomplicated
CPT/HCPCS: 80305; G0480

== ENCOUNTER 2018-01-20 16:18 | Inpatient (IN) | payer OTHER ==
--- NOTE | 2018-01-20 16:33 | EDPHY ---
H & P Stated Complaint: borderline/some SI thoughts wants mental health eval - Personal History Current Tetanus Diphtheria and Acellular Pertussis (TDAP): Yes - Medical/Surgical History Hx Asthma: No Hx Chronic Respiratory Disease: No Hx Diabetes: No Hx Cardiac Disease: No Hx Renal Disease: No Hx Cirrhosis: No Hx Alcoholism: No Hx HIV/AIDS: No Hx Splenectomy or Spleen Trauma: No Other PMH: Psych; finger fx age 7 - Social History Smoking Status: Never smoked Time Seen by Provider: 01/20/18 16:26 HPI/ROS: CHIEF COMPLAINT: Requesting mental health evaluation HISTORY OF PRESENT ILLNESS: 27-year-old male history of bipolar disorder self presents to the ER with his girlfriend stating that he has been off of his medications and has not seen a therapist in some time, last night he had a suicide attempt by driving his vehicle off of a [place]. He was wearing his seatbelt. Expresses his disappointment when he did not . Denies physical trauma or pain from this incident. REVIEW OF SYSTEMS: A ten point review of systems was performed and is negative with the exception of the items mentioned in the HPI PAST MEDICAL & SURGICAL HISTORY: Borderline personality disorder, bipolar disorder SOCIAL HISTORY:Denies acute alcohol or drug use PHYSICAL EXAM (Prior to examination, patient consented to physical exam, hands were washed and my usual and customary physical exam procedures followed) 1) GENERAL: Well-developed, well-nourished, alert and oriented.. 2) HEAD: Normocephalic, atraumatic 3) HEENT: Pupils equal, round, reactive to light bilaterally. Sclera anicteric. No raccoon eyes no Lentz sign. No rhinorrhea. No otorrhea. 4) NECK: Full range of motion, no meningeal signs. 5) LUNGS: Clear auscultation bilaterally, no wheezes, no rhonchi, no retractions. 6) HEART: Regular rate and rhythm, no murmur, no heave, no gallop. 7) ABDOMEN: No guarding, no rebound, no focal tenderness, 8) MUSCULOSKELETAL: Moving all extremities, no focal areas of tenderness, no obvious trauma. No peripheral edema or discoloration. 9) BACK: No CVA tenderness, no midline vertebral tenderness, no fluctuance, no step-off, no obvious trauma, no visual or palpable abnormality. 10) SKIN: No rash, no petechiae. 11) Psychiatric: Patient is oriented X 3, there is no agitation. DIFFERENTIAL DIAGNOSIS: In no particular order including but limited to depression, suicidal ideation, homicidal ideation (Brenda Del Valle) Constitutional: Initial Vital Signs Temperature (C) 36.3 C 01/20/18 16:23 Heart Rate 103 H 01/20/18 16:23 Respiratory Rate 20 01/20/18 16:23 Blood Pressure 106/77 01/20/18 16:23 O2 Sat (%) 96 01/20/18 16:23 O2 Delivery Mode Room Air Allergies/Adverse Reactions: No Known Allergies Allergy (Verified 01/20/18 16:22) Home Medications: Medication Instructions Recorded ALPRAZolam [Xanax 1 MG (*)] 1 mg PO DAILY PRN #15 tab 03/18/17 Dextroamphetamine/Amphetamine 30 mg PO DAILY #15 cap.er.24h 03/18/17 [Adderall Xr 30 mg Capsule] Medical Decision Making ED Course/Re-evaluation: 4:38 p.m.: In consultation with Dr. Asad Ramon patient has been placed on M1 hold as I think he is a an imminent danger to himself, notably he describes driving his car off of a [place] last evening in a suicide attempt, describes being disappointed when he did not . He has a history of bipolar disorder with borderline personality disorder, has been off of his medications and not seeing therapy for some time. (Brenda Del Valle Zahra) Other Provider: PHYSICIAN DOCUMENTATION: The patient was evaluated and managed by the Physician Tax Analyst and myself. I have reviewed the chart and agree with the findings and plan of care as documented. In addition, I examined the patient myself at 1640. History confirmed as wants to drive his car off a [place]. Physical findings as follows: Alert and cooperative. Admits to suicidal ideation. Patient is been placed on a mental health hold by myself and Alf RILEY. Screening labs and psychiatric evaluation. The patient had a medical screening evaluation performed. There does not appear to be an acute emergent medical or surgical condition which would preclude psychiatric evaluation at this time. Mental health evaluation is requested at 1832. The patient will be transferred to [facility] for inpatient psychiatric hospital bed not available at this facility, in stable condition; accepting physician is Dr. Ibarra. I am the secondary supervising physician. (Asad Ramon) - Data Points Laboratory Results: Laboratory Results 01/20/18 17:54 01/20/18 17:54 01/20/18 01/20/18 01/20/18 17:54 17:54 16:50 WBC 7.36 10^3/uL 10^3/uL (3.80-9.50) RBC 5.05 10^6/uL 10^6/uL (4.40-6.38) Hgb 16.0 g/dL g/dL (13.7-17.5) Hct 47.4 % % (40.0-51.0) MCV 93.9 fL fL (81.5-99.8) MCH 31.7 pg pg (27.9-34.1) MCHC 33.8 g/dL g/dL (32.4-36.7) RDW 12.7 % % (11.5-15.2) Plt Count 241 10^3/uL 10^3/uL (150-400) MPV 10.0 fL fL (8.7-11.7) Neut % (Auto) 64.1 % % (39.3-74.2) Lymph % (Auto) 26.8 % % (15.0-45.0) [place] % (Auto) 7.3 % % (4.5-13.0) Eos % (Auto) 1.0 % % (0.6-7.6) Baso % (Auto) 0.5 % % (0.3-1.7) Nucleat RBC Rel Count 0.0 % % (0.0-0.2) Absolute Neuts (auto) 4.72 10^3/uL 10^3/uL (1.70-6.50) Absolute Lymphs (auto) 1.97 10^3/uL 10^3/uL (1.00-3.00) Absolute Monos (auto) 0.54 10^3/uL 10^3/uL (0.30-0.80) Absolute Eos (auto) 0.07 10^3/uL 10^3/uL (0.03-0.40) Absolute Basos (auto) 0.04 10^3/uL 10^3/uL (0.02-0.10) Absolute Nucleated RBC 0.00 10^3/uL 10^3/uL (0-0.01) Immature Gran % 0.3 % % (0.0-1.1) Immature Gran # 0.02 10^3/uL 10^3/uL (0.00-0.10) Sodium 138 mEq/L mEq/L (135-145) Potassium 4.6 mEq/L mEq/L (3.5-5.2) Chloride 103 mEq/L mEq/L (97-110) Carbon Dioxide 28 mEq/l mEq/l (22-31) Anion Gap 7 mEq/L L mEq/L (8-16) BUN 14 mg/dL mg/dL (7-23) Creatinine 1.0 mg/dL mg/dL (0.7-1.3) Estimated GFR > 60 Glucose 80 mg/dL mg/dL (70-100) Calcium 10.2 mg/dL mg/dL (8.5-10.4) Salicylates < 1.0 mg/dL L mg/dL (2.0-20.0) Urine Opiates Screen NEGATIVE (NEGATIVE) Acetaminophen < 10 mcg/mL L mcg/mL (10-30) Urine Barbiturates NEGATIVE (NEGATIVE) Ur Phencyclidine Scrn NEGATIVE (NEGATIVE) Ur Amphetamine Screen NEGATIVE (NEGATIVE) U Benzodiazepines Scrn NON-NEGATIVE H (NEGATIVE) Urine Cocaine Screen NEGATIVE (NEGATIVE) U Marijuana (THC) Screen NEGATIVE (NEGATIVE) Ethyl Alcohol < 10 mg/dL mg/dL (0-10) Departure - Departure Disposition: [facility] IP Clinical Impression: Bipolar disorder Qualifiers: Active/Remission status: currently active Current bipolar episode type: depressed Current episode severity: moderate Qualified Code(s): F31.32 - Bipolar disorder, current episode depressed, moderate Condition: Good Instructions: Bipolar Disorder (ED) Referrals: [facility] [Other] - As per Instructions
[2018-01-20 18:02] LABS: PLATELET COUNT 241 10^3/uL (150-400)
[2018-01-20] MEDS ORDERED: MAGNESIUM HYDROXIDE 30 ML UDCUP PO PRN (22:20)
[2018-01-20] MEDS ORDERED: ACETAMINOPHEN 325 MG TAB PO PRN (22:20)
[2018-01-20] MEDS ORDERED: NICOTINE POLACRILEX 2 MG GUM B PRN (22:20)
[2018-01-20] MEDS ORDERED: LORazepam 0.5 MG TAB PO PRN (22:20)
[2018-01-20] MEDS ORDERED: MAG HYDROX/AL HYDROX/SIMETH 30 ML UDCUP PO PRN (22:20)
[2018-01-21] MEDS ORDERED: MELATONIN 3 MG TAB PO PRN (12:30)
[2018-01-21] MEDS ORDERED: LORazepam 0.5 MG TAB PO PRN (12:31)
[2018-01-21] MEDS: ARIPiprazole 5 MG TAB PO SCH (13:43)
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
[2018-01-22] MEDS: ARIPiprazole 5 MG TAB PO SCH (08:36)
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
[2018-01-22 21:13] VITALS: BP 116/65
[2018-01-23 06:50] VITALS: PULSE 95; RESP 20; TEMP 97.9; O2SAT 94
[2018-01-23] MEDS: ARIPiprazole 5 MG TAB PO SCH (08:17)
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
== END 2018-01-23 15:15 | disposition home or self-care (01) | DRG 885 ==
LOC: BBEH 22:10
PROVIDERS: ADMIT Psychiatry & Neurology Behavioral Neurology & Neuropsychiatry; ATTEND Psychiatry & Neurology Psychiatry
DX: F33.1 Major depressive disorder, recurrent, moderate (principal); F60.3 Borderline personality disorder; F90.9 Attention-deficit hyperactivity disorder, unspecified type; R00.0 Tachycardia, unspecified; Z72.89 Other problems related to lifestyle; F13.90 Sedative, hypnotic, or anxiolytic use, unspecified, uncomplicated
CPT/HCPCS: 80305; G0480